=== PATIENT | female | born 2005 | race Hispanic/Latino ===

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

== ENCOUNTER 2024-02-04 13:36 | Inpatient (IN) | payer MEDICAID, OTHER, SELFPAY ==
[2024-02-04] MEDS ORDERED: Diphenoxylate HCl/Atropine Tablet PO PRN (21:59)
[2024-02-04] MEDS ORDERED: Acetaminophen 500 MG TAB PO PRN (21:59)
[2024-02-04] MEDS ORDERED: fentaNYL 50 mcg/mL 1 mL Vial SLOW IVP PRN (21:59)
[2024-02-04] MEDS ORDERED: Ondansetron PF 4 MG/2 ML Vial IVP PRN (21:59)
[2024-02-04] MEDS ORDERED: hydrALAZINE 20 MG/ML VIAL SLOW IVP PRN (21:59)
[2024-02-04] MEDS ORDERED: Lidocaine 1% (PF) 30 ML VIAL SC PRN (21:59)
[2024-02-04] MEDS ORDERED: Tranexamic Acid 1,000 MG/10 ML VIAL IVP PRN (21:59)
[2024-02-04] MEDS ORDERED: Misoprostol 200 MCG TAB PR PRN (21:59)
[2024-02-04] MEDS ORDERED: Carboprost 250 MCG/ML AMP IM PRN (21:59)
[2024-02-04] MEDS ORDERED: Methylergonovine 0.2 MG/ML VIAL IM PRN (21:59)
[2024-02-04] MEDS ORDERED: Promethazine HCl 25 MG/ML VIAL IM PRN (21:59)
[2024-02-04] MEDS ORDERED: Oxytocin 30 units/NS 500 ML 500 ML IV SCH (22:00)
[2024-02-04] MEDS ORDERED: Lactated Ringer's 1,000 ML IV SCH (22:00)
[2024-02-04 22:02] VITALS: BMI 31.6
[2024-02-04 22:10] LABS: Hemoglobin 12.3 g/dL (12.0-15.5); Mean Corpuscular HGB CONC 36.2 g/dL (32.0-36.0); Mean Corpuscular Hemoglobin 31.8 pg (27.0-33.0); Mean Corpuscular Volume 87.9 fL (81.6-98.3); Mean Platelet Volume 10.7 fL (7.4-10.4); Platelet Count 208 10x3/uL (150-450); Red Blood Cell (RBC) Count 3.87 10x6/uL (3.90-5.03); White Blood Cell (WBC) Count 8.6 10x3/uL (3.5-10.5)
[2024-02-04 22:45] LABS: HBsAg Index 0.18 S/CO (0-0.99); Hep B Surf Ag - L&D Non-Reactive S/CO (NonReactive); Syphilis Antibody Nonreactive (Nonreactive); Syphilis Antibody Index 0.04 S/CO (<1.00 Non-Reactive)
[2024-02-04] MEDS: Misoprostol 100 MCG TAB VAG SCH (23:11)
[2024-02-05] MEDS: Oxytocin 30 units/NS 500 ML 500 ML IV SCH (04:44)
[2024-02-05] MEDS: fentaNYL/Ropivacaine Epidural 100 ML ONE (10:07)
[2024-02-05] MEDS ORDERED: ePHEDrine Sulfate 50 MG/10 ML VIAL SLOW IVP PRN (11:38)
[2024-02-05] MEDS ORDERED: diphenhydrAMINE 50 MG/ML VIAL IVP PRN (11:38)
[2024-02-05] MEDS ORDERED: Promethazine HCl 25 MG/ML VIAL IM PRN ×2 (11:38→22:01)
[2024-02-05] MEDS ORDERED: Moisturizing Cream (Eucerin) 113 GM JAR TOP PRN (11:38)
[2024-02-05] MEDS ORDERED: Lactated Ringer's 500 ML IV PRN (11:38)
[2024-02-05] MEDS ORDERED: Naloxone HCl 0.4 mg/ml Vial IVP PRN ×2 (11:38)
[2024-02-05] MEDS ORDERED: Ondansetron PF 4 MG/2 ML Vial IVP PRN ×2 (11:38→22:01)
[2024-02-05] MEDS ORDERED: Communication Order-Pharmacy FS SCH (11:45)
[2024-02-05] MEDS ORDERED: Bupivacaine/Epinephrine 0.25% 30 ML VIAL ONE (17:00)
[2024-02-05] MEDS ORDERED: Bupivacaine 0.25% HCL 30 ML VIAL ONE (17:00)
[2024-02-05] MEDS ORDERED: ePHEDrine Sulfate 50 MG/10 ML VIAL ONE (17:00)
[2024-02-05] MEDS: fentaNYL 2 mcg/Ropivacaine 0.2% Epidural 100 ML CADD EPIDURAL SCH (17:56)
[2024-02-05] MEDS ORDERED: Misoprostol 200 MCG TAB VAG PRN (22:01)
[2024-02-05] MEDS ORDERED: Milk Of Magnesia 30 ML UDCUP PO PRN (22:01)
[2024-02-05] MEDS ORDERED: hydrALAZINE 20 MG/ML VIAL SLOW IVP PRN (22:01)
[2024-02-05] MEDS ORDERED: Methylergonovine 0.2 MG/ML VIAL IM PRN (22:01)
[2024-02-05] MEDS ORDERED: Lanolin Ointment 7 GM TUBE TOP PRN (22:01)
[2024-02-05] MEDS ORDERED: Bisacodyl 10 MG SUPP PR PRN (22:01)
[2024-02-05] MEDS ORDERED: Oxytocin 30 units/NS 500 ML 500 ML IV SCH (22:15)
[2024-02-05] MEDS: Acetaminophen 325 MG TAB PO PRN (23:09)
[2024-02-05] MEDS: Ibuprofen 800 MG TAB PO SCH (23:09)
[2024-02-06] MEDS: Dexmedetomidine 200 MCG/2 ML VIAL ONE ×2 (05:51)
[2024-02-06] MEDS: Ibuprofen 800 MG TAB PO SCH (05:53)
[2024-02-06] MEDS: Ferrous Sulfate 325 MG TAB PO SCH (08:53)
[2024-02-06] MEDS: Benzocaine-Menthol 82.5 ML CAN TOP PRN (08:54)
[2024-02-06] MEDS: Docusate 100 MG CAP PO SCH (08:54)
[2024-02-06] MEDS: Prenatal Vitamin 1 TAB PO SCH (08:54)
[2024-02-07 08:09] VITALS: BP 102/59; TEMP 98
== END 2024-02-07 12:55 | disposition home or self-care (01) | DRG 807 ==
LOC: CSHLD 20:53 → CSHPP 02-06 00:15
PROVIDERS: ADMIT Family Medicine; ATTEND Family Medicine
PROC: 10907ZC Drainage of Amniotic Fluid, Therapeutic from Products of Conception, Via Natural or Artificial Opening (ICD-10-PCS; 2024-02-05)
PROC: 10H07YZ Insertion of Other Device into Products of Conception, Via Natural or Artificial Opening (ICD-10-PCS; 2024-02-05)
PROC: 10E0XZZ Delivery of Products of Conception, External Approach (ICD-10-PCS; principal; 2024-02-06)
PROC: 0HQ9XZZ Repair Perineum Skin, External Approach (ICD-10-PCS; 2024-02-06)
DX: O48.0 Post-term pregnancy (principal); Z37.0 Single live birth; O70.0 First degree perineal laceration during delivery; Z3A.40 40 weeks gestation of pregnancy; Z79.82 Long term (current) use of aspirin
CPT/HCPCS: 36416; 51702; 85027; 86780; 86850; 86900; 86901; 87340; J0665; J2590